=== PATIENT | female | born 1995 | race African-American/Black ===

== ENCOUNTER 2018-10-05 18:48 | Inpatient (IN) | payer MEDICARE, MEDICAID ==
[~2018-10-05] VITALS: Ht 177.8 cm; Wt 96.6 kg
[2018-10-05] MEDS ORDERED: DEPAKOTE ER500 MG ORAL (18:51)
[2018-10-05 19:19] VITALS: BP 130/88
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
[2018-10-05 21:08] LABS: APPEARANCE,URINE CLEAR; BILIRUBIN, URINE NEGATIVE (NEGATIVE); COLOR,URINE PALE YELLOW; GLUCOSE, URINE (UA) NEGATIVE (NEGATIVE); KETONES,URINE NEGATIVE (NEGATIVE); LEUKOCYTE ESTERASE ,URINE NEGATIVE (NEGATIVE); NITRITE,URINE NEGATIVE (NEGATIVE); PH,URINE 7 (4.5-8.0); PROTEIN,URINE NEGATIVE (NEGATIVE); UROBILINOGEN,URINE NORMAL MG/DL (0.0-1.0)
[2018-10-05 21:10] LABS: BASOPHILS % (AUTO) 1.2 % (0.0-2.0); EOSINOPHILS % (AUTO) 0.1 % (0.0-3.0); HEMATOCRIT 43.1 % (37.0-47.0); HEMOGLOBIN 13.8 G/DL (12.0-16.0); LYMPHOCYTES % (AUTO) 21.4 % (20.0-45.0); MEAN CORPUSCULAR VOLUME 81 FL (80-99); MONOCYTES % (AUTO) 7.6 % (1.0-10.0); NEUTROPHILS % (AUTO) 69.7 % (45.0-75.0); PLATELET COUNT 264 K/UL (150-450); RED BLOOD COUNT 5.33 M/UL (4.20-5.40); RED CELL DISTRIBUTION WIDTH 12.2 % (11.6-14.8); WHITE BLOOD COUNT 14.7 K/UL (4.8-10.8)
[2018-10-05 21:13] LABS: ANION GAP 12 mmol/L (5-15); BLOOD UREA NITROGEN 6 mg/dL (7-18); CALCIUM 9.4 MG/DL (8.5-10.1); CARBON DIOXIDE 25 MMOL/L (21-32); CHLORIDE 104 MMOL/L (98-107); CREATININE 0.9 MG/DL (0.55-1.30); SODIUM 141 MMOL/L (136-145)
[2018-10-05 21:28] LABS: ALANINE AMINOTRANSFERASE 25 U/L (12-78); ALBUMIN 3.8 G/DL (3.4-5.0); ALBUMIN/GLOBULIN RATIO 0.8 (1.0-2.7); ALKALINE PHOSPHATASE 132 U/L (46-116); ASPARTATE AMINO TRANSFERASE 29 U/L (15-37); BILIRUBIN,TOTAL 0.3 MG/DL (0.2-1.0)
[2018-10-05 22:28] VITALS: BP 104/61
--- NOTE | 2018-10-05 22:29 | NUR ---
ER Nurse Note: Pt stated she was feeling nauseated; MD notified for zofran. Head of bed elevated. Pt asleep. VSS. No signs of distress. Will continue to montior.
[2018-10-05] MEDS ORDERED: Morphine Sulfate 4mg/ml Inj (IV/IM USE ONLY) IVP PRN (22:30)
[2018-10-05] MEDS ORDERED: Miralax 17gm pkt ORAL PRN (22:30)
[2018-10-05] MEDS ORDERED: LORazepam Inj 2mg/ml 1ml IV PRN (22:30)
[2018-10-05] MEDS ORDERED: Albuterol/Ipratropium 3ml neb HHN PRN (22:30)
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
[2018-10-05] MEDS ORDERED: Cefepime HCl 1 GM in D5W 55 ML IVPB ONE (23:45)
[2018-10-06] VITALS (7 sets, daily range): BP systolic 107–136; BP diastolic 66–78
--- NOTE | 2018-10-06 | NUR ---
ER Nurse Note: Pt asleep, no signs of distress. O2 98% RA. IV patent, no signs of infiltration. All safety measures met; sitter at bedside. Will continue to montior.
--- NOTE | 2018-10-06 02:30 | NUR ---
ER Nurse Note: Report given to CASSIDY Blair in [place] for continuity of care. Pt was held for ultrasound. Pt a&ox4, VSS, no signs of distress. Pt does not complain of pain. Pt asleep, calm. All belongings taken with pt. Sitter with transport.
[2018-10-06] MEDS ORDERED: Vancomycin 1 GM in D5W 275 ML IVPB SCH (03:00)
--- NOTE | 2018-10-06 03:15 | NUR ---
NURSE NOTES: Patient in bed, awake, alert and verbally responsive. A0x4 to name, place, situation, time. at times patient laughs at no reason. Kept clean and comfortable. Provided safe environment. Skin is intact. No complaint of pain or discomfort at this time. Iv site is patent. call light is at bedside. Oriented patient to the room and hospital. will continue plan of care.
[2018-10-06 07:03] LABS: BASOPHILS % (AUTO) 0.5 % (0.0-2.0); EOSINOPHILS % (AUTO) 0.2 % (0.0-3.0); HEMATOCRIT 38.3 % (37.0-47.0); HEMOGLOBIN 12.7 G/DL (12.0-16.0); LYMPHOCYTES % (AUTO) 26.9 % (20.0-45.0); MEAN CORPUSCULAR VOLUME 79 FL (80-99); NEUTROPHILS % (AUTO) 63.5 % (45.0-75.0); PLATELET COUNT 242 K/UL (150-450); RED BLOOD COUNT 4.83 M/UL (4.20-5.40); RED CELL DISTRIBUTION WIDTH 12.5 % (11.6-14.8); WHITE BLOOD COUNT 12.5 K/UL (4.8-10.8)
[2018-10-06 07:14] LABS: ALBUMIN 3.1 G/DL (3.4-5.0); ANION GAP 10 mmol/L (5-15); BLOOD UREA NITROGEN 8 mg/dL (7-18); CALCIUM 8.3 MG/DL (8.5-10.1); CARBON DIOXIDE 27 MMOL/L (21-32); CHLORIDE 106 MMOL/L (98-107); CREATININE 0.8 MG/DL (0.55-1.30); PHOSPHORUS 3.9 MG/DL (2.5-4.9); POTASSIUM 3.3 MMOL/L (3.5-5.1); SODIUM 143 MMOL/L (136-145)
--- NOTE | 2018-10-06 07:32 | NUR ---
HAND-OFF: Report given to Garcia Montgomery.
--- NOTE | 2018-10-06 08:02 | NUR ---
NURSE NOTES: Pt in bed sleeping, in no acute distress. Iv to right wrist patent running fluids as ordered. Pt has sitter at bedside (hx of combative behavior.) Pt left in bed in low position, call light within reach, bed locked and alarm on.
[2018-10-06] MEDS ORDERED: Cefepime HCl 2 GM in D5W 110 ML IV SCH (09:00)
[2018-10-06] MEDS: Depakote ER 500mg tab ORAL SCH ×2 (09:32→20:19)
[2018-10-06] MEDS: Heparin 5000 units/ml inj SUBQ SCH ×2 (09:33→20:20)
--- NOTE | 2018-10-06 10:51 | Diagnostic Imaging Report ---
Indication: Shortness of breath Technique: One view of the chest Comparison: Findings: Lungs and pleural spaces are clear. Heart size is normal Impression: No acute process
--- NOTE | 2018-10-06 12:07 | NUR ---
NURSE NOTES: Notified Dr. Quezada of K 3.3, new orders received for kcl 40 celsa and for sitter (hx of combative behavior/hallucinations.) refer to orders in chart.
--- NOTE | 2018-10-06 12:19 | Consultation ---
History of Present Illness General Date patient seen: Oct 06, 2018 Chief Complaint: Behavioral Complaint Present Illness HPI 23-year-old female with hx of seizures and psych, [facility] with CC of agitation. Patient's was somnolent ion ER. Patient was noted to have increased cough. She also had low grade temperature and Leukocytosis and admitted for further work up. Currently Pt is awake and comfortable. Doesn't respond to any questions and has burst of laugh episodes. Allergies: Coded Allergies: ARIPIPRAZOLE (Unverified Allergy, Unknown, 10/05/18) PALIPERIDONE (Verified Allergy, Unknown, 10/05/18) Uncoded Allergies: ARPIPRAZOLE (Allergy, Unknown, 10/05/18) Medication History Scheduled Divalproex Sodium* (Depakote Er*), 500 MG ORAL EVERY 12 HOURS, (Reported) Patient History Healthcare decision maker Resuscitation status Advanced Directive on File No Past Medical/Surgical History Past Medical/Surgical History: (1) Seizures (2) Psychosis Review of Systems All Other Systems: negative except mentioned in HPI Physical Exam General Appearance: WD/WN Lines, tubes and drains: peripheral HEENT: normocephalic, atraumatic Neck: non-tender, supple Respiratory/Chest: chest wall non-tender, lungs clear Breasts: no masses Cardiovascular/Chest: normal peripheral pulses Abdomen: normal bowel sounds, non tender Extremities: normal range of motion Skin Exam: normal pigmentation Last 24 Hour Vital Signs Date Time Temp Pulse Resp B/P (MAP) Pulse Ox O2 Delivery O2 Flow Rate FiO2 10/06/18 11:50 98.5 89 20 107/69 (82) 100 10/06/18 09:00 Room Air 10/06/18 08:03 97.6 98 20 109/74 (86) 100 10/06/18 03:49 98.8 100 20 121/78 (92) 100 10/06/18 03:19 Room Air 10/06/18 02:30 99.8 86 18 107/66 98 Room Air 10/06/18 02:30 99.2 86 16 107/66 98 Room Air 10/05/18 22:28 99.8 91 20 104/61 98 Room Air 10/05/18 21:26 100.2 10/05/18 19:19 75 18 Room Air 10/05/18 19:19 100.2 86 18 130/88 98 Room Air 10/05/18 18:44 100.2 75 18 130/88 98 Room Air Intake and Output 10/05/18 10/06/18 18:59 06:59 Intake Total 480.0 ml Balance 480.0 ml Intake IV Total 480.0 ml # Voids 5 Laboratory Tests Test 10/05/18 20:30 10/06/18 04:45 White Blood Count 14.7 K/UL (4.8-10.8) H 12.5 K/UL (4.8-10.8) H Red Blood Count 5.33 M/UL (4.20-5.40) 4.83 M/UL (4.20-5.40) Hemoglobin 13.8 G/DL (12.0-16.0) 12.7 G/DL (12.0-16.0) Hematocrit 43.1 % (37.0-47.0) 38.3 % (37.0-47.0) Mean Corpuscular Volume 81 FL (80-99) 79 FL (80-99) L Mean Corpuscular Hemoglobin 25.9 PG (27.0-31.0) L 26.2 PG (27.0-31.0) L Mean Corpuscular Hemoglobin Concent 32.1 G/DL (32.0-36.0) 33.0 G/DL (32.0-36.0) Red Cell Distribution Width 12.2 % (11.6-14.8) 12.5 % (11.6-14.8) Platelet Count 264 K/UL (150-450) 242 K/UL (150-450) Mean Platelet Volume 5.9 FL (6.5-10.1) L 6.1 FL (6.5-10.1) L Neutrophils (%) (Auto) 69.7 % (45.0-75.0) 63.5 % (45.0-75.0) Lymphocytes (%) (Auto) 21.4 % (20.0-45.0) 26.9 % (20.0-45.0) Monocytes (%) (Auto) 7.6 % (1.0-10.0) 9.0 % (1.0-10.0) Eosinophils (%) (Auto) 0.1 % (0.0-3.0) 0.2 % (0.0-3.0) Basophils (%) (Auto) 1.2 % (0.0-2.0) 0.5 % (0.0-2.0) Urine Color Pale yellow Urine Appearance Clear Urine pH 7 (4.5-8.0) Urine Specific [place] 1.005 (1.005-1.035) Urine Protein Negative (NEGATIVE) Urine Glucose (UA) Negative (NEGATIVE) Urine Ketones Negative (NEGATIVE) Urine Blood Negative (NEGATIVE) Urine Nitrite Negative (NEGATIVE) Urine Bilirubin Negative (NEGATIVE) Urine Urobilinogen Normal MG/DL (0.0-1.0) Urine Leukocyte Esterase Negative (NEGATIVE) Urine RBC 0-2 /HPF (0 - 2) Urine WBC 0 /HPF (0 - 2) Urine Squamous Epithelial Cells Occasional /LPF Urine Bacteria None /HPF (NONE) Urine HCG, Qualitative Negative (NEGATIVE) Sodium Level 141 MMOL/L (136-145) 143 MMOL/L (136-145) Potassium Level 4.0 MMOL/L (3.5-5.1) 3.3 MMOL/L (3.5-5.1) L Chloride Level 104 MMOL/L (98-107) 106 MMOL/L (98-107) Carbon Dioxide Level 25 MMOL/L (21-32) 27 MMOL/L (21-32) Anion Gap 12 mmol/L (5-15) 10 mmol/L (5-15) Blood Urea Nitrogen 6 mg/dL (7-18) L 8 mg/dL (7-18) Creatinine 0.9 MG/DL (0.55-1.30) 0.8 MG/DL (0.55-1.30) Estimat Glomerular Filtration Rate > 60 mL/min (>60) > 60 mL/min (>60) Glucose Level 92 MG/DL (74-106) 90 MG/DL (74-106) Calcium Level 9.4 MG/DL (8.5-10.1) 8.3 MG/DL (8.5-10.1) L Total Bilirubin 0.3 MG/DL (0.2-1.0) Aspartate Amino Transf (AST/SGOT) 29 U/L (15-37) Alanine Aminotransferase (ALT/SGPT) 25 U/L (12-78) Alkaline Phosphatase 132 U/L (46-116) H Troponin I 0.011 ng/mL (0.000-0.056) Total Protein 8.3 G/DL (6.4-8.2) H Albumin 3.8 G/DL (3.4-5.0) 3.1 G/DL (3.4-5.0) L Globulin 4.5 g/dL Albumin/Globulin Ratio 0.8 (1.0-2.7) L Thyroid Stimulating Hormone (TSH) 1.702 uiU/mL (0.358-3.740) Phosphorus Level 3.9 MG/DL (2.5-4.9) Microbiology Date/Time Source Procedure Growth Status 10/05/18 20:30 Nasal Nares Influenza Types A,B Antigen (MINAL) - Final Complete 10/06/18 00:00 Rectum Received Height (Feet): 5 Height (Inches): 10.00 Weight (Pounds): 213 Medications Current Medications Medications (Trade) Dose Ordered Sig/[place] Route PRN Reason Start Time Stop Time Status Last Admin Dose Admin Acetaminophen (Tylenol) 650 mg Q4H PRN ORAL FEVER 10/05/18 22:30 11/04/18 22:29 Albuterol/ Ipratropium (Albuterol/ Ipratropium) 3 ml EVERY 4 HOURS PRN HHN Shortness of Breath 10/05/18 22:30 10/10/18 22:29 Cefepime HCl 2 gm/ Dextrose 110 ml @ 220 mls/hr EVERY 12 HOURS IV 10/06/18 09:00 10/13/18 08:59 10/06/18 09:32 Dextrose (Dextrose 50%) 50 ml STAT PRN IV Hypoglycemia 10/05/18 22:30 11/04/18 22:29 Divalproex Sodium (Depakote ER) 500 mg EVERY 12 HOURS ORAL 10/06/18 09:00 11/05/18 08:59 10/06/18 09:32 Heparin Sodium (Porcine) (Heparin 5000 units/ml) 5,000 units EVERY 12 HOURS SUBQ 10/06/18 09:00 11/05/18 08:59 10/06/18 09:33 Lorazepam (Ativan 2mg/ml 1ml) 2 mg EVERY 2 HOURS PRN IV For Anxiety 10/05/18 22:30 10/12/18 22:29 Morphine Sulfate (Morphine Sulfate) 4 mg EVERY 4 HOURS PRN IVP Severe Pain (Pain Scale 7-10) 10/05/18 22:30 10/12/18 22:29 Ondansetron HCl (Zofran) 4 mg Q6H PRN IVP Nausea & Vomiting 10/05/18 22:30 11/04/18 22:29 Polyethylene Glycol (Miralax) 17 gm DAILYPRN PRN ORAL Constipation 10/05/18 22:30 11/04/18 22:29 Potassium Chloride (K-Dur) 40 meq ONCE ORAL 10/06/18 12:15 10/06/18 13:00 Sodium Chloride 1,000 ml @ 50 mls/hr Q20H IV 10/05/18 22:26 11/04/18 22:25 10/06/18 03:07 Vancomycin HCl 1 gm/Dextrose 275 ml @ 183.3 mls/ hr Q24H IVPB 10/06/18 03:00 10/11/18 02:59 10/06/18 03:08 Assessment/Plan Problem List: (1) Sepsis ICD Codes: A41.9 - Sepsis, unspecified organism SNOMED: 71965486 (2) Leukocytosis ICD Codes: D72.829 - Elevated white blood cell count, unspecified SNOMED: 363549241, 760100891 (3) Psychosis ICD Codes: F29 - Unspecified psychosis not due to a substance or known physiological condition SNOMED: 97846071 (4) Seizures ICD Codes: R56.9 - Unspecified convulsions SNOMED: 69976030 Assessment/Plan perez culture iv abx check urine check electrolytes and wbc ID evaluation continue ptsy seizure medication. Dwight Winter MD Oct 06, 2018 12:19
--- NOTE | 2018-10-06 15:03 | NUR ---
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 TO ER CC HEARING VOICES SI; FEBRILE ILLNESS, LEUKOCYTOSIS T. 100.2 HR 79 RR 18 B/P 130/88 WBC 14.7 NA 132 CXR= NO ACUTE PROCESS IS: TYLENOL PO ADMITTED TO MED/SURG MED/SURG STATUS DCP RETURN TO [facility]
--- NOTE | 2018-10-06 15:18 | NUR ---
ST NOTE: BEDSIDE SWALLOW EVAL RECEIVED BEDSIDE SWALLOW EVAL ORDER CHART REVIEWED PRIOR THE EVALUATION PT IS A 23-YEAR-OLD FEMALE WHO WAS ADMITTED DUE TO LEUKOCYTOSIS PT HAS H/O COPD, ALCOHOL ABUSE, DRUG ABUSE, SEIZURE, HTN, PSYCH(SCHIZOPHRENIA AND ANXIETY). PER CXR: NO ACUTE PROCESS. PT RESIDES AT SNF. PER CHART, PT IS ON REGULAR WITH THIN LIQUIDS DIET. PER PT'S POLST: FULL CODE, FULL TREATMENT, OKAY FOR LONG-TERM ARTIFICIAL NUTRITION, INCLUDING FEEDING TUBES. CURRENT STATUS: PT SEEN AT BEDSIDE, SITTING UPRIGHT, WITH SITTER. ALERT, COOPERATIVE, FOLLOWS DIRECTIONS, EXPRESS THE WANT TO EAT/DRINK, PT HAS SOFT VOICE. DENIED ANY SWALLOW DIFFICULTY. GIVEN PO TRIALS: THIN(CUP-SELF), PUREE(TSP) AND CRACKERS X 2. GOOD LABIAL AND LINGUAL RANGE OF MOTION AND STRENGTH GOOD MASTICATION TIME, GOOD ORAL TRANSIT TIME AND GOOD LARYNGEAL ELEVATION, NO OVERT S/S OF ASPIRATION. OVERALL, PT'S SWALLOWING IS FUNCTIONAL. RECOMMENDATIONS: 1. SLOWLY INITIATE REGULAR WITH THIN LIQUIDS 2. GENERAL ASPIRATION PRECAUTIONS 3. MEAL OBSERVATIONS NO SKILLED ST SERVICE IS REQUIRED AT THIS TIME. D/W RNIVETH.
--- NOTE | 2018-10-06 15:51 | NUR ---
NURSE NOTES: Pt peeled skin off from left 5th digit, picture taken. Order set for wound care in place. Dressing placed on pt, cleansed with NS applied adaptic and 4x4 gauze. Educated pt on not picking skin, sitter at bedside. Will continue to monitor
--- NOTE | 2018-10-06 15:53 | NUR ---
Pt in bed laughing and talking to self. "Geraldine is in the room with me". The pt is hallucinating. Denies hearing voices/commands to hurt self. Pt a/o x 3, aware she is in the hospital but unable to verbalize purpose. Pt currently in no acute distress, laying in bed comfortably. Will continue monitoring, sitter at bedside for safety.
--- NOTE | 2018-10-06 16:00 | Consultation ---
History of Present Illness General Date patient seen: Oct 06, 2018 Chief Complaint: Behavioral Complaint Present Illness HPI 23 y/o F with hx of HTN, seizures disorder, schizophrenia, COPD, alcohol abuse in remission presents to ED on 10/05 with increased agitation, cough. Upon admission was noted patient had low grade fever and leukocytosis Allergies: Coded Allergies: ARIPIPRAZOLE (Unverified Allergy, Unknown, 10/05/18) PALIPERIDONE (Verified Allergy, Unknown, 10/05/18) Uncoded Allergies: ARPIPRAZOLE (Allergy, Unknown, 10/05/18) Medication History Scheduled Divalproex Sodium* (Depakote Er*), 500 MG ORAL EVERY 12 HOURS, (Reported) Patient History Healthcare decision maker Resuscitation status Advanced Directive on File No Patient History Narrative Pmhx: as above Shx: reviewed Fhx: non contributory Review of Systems All Other Systems: negative except mentioned in HPI Physical Exam Physical Exam Narrative General Appearance: WD/WN Lines, tubes and drains: peripheral HEENT: normocephalic, atraumatic Neck: non-tender, supple Respiratory/Chest: chest wall non-tender, lungs clear Breasts: no masses Cardiovascular/Chest: normal peripheral pulses Abdomen: normal bowel sounds, non tender Extremities: normal range of motion Skin Exam: normal pigmentation Last 24 Hour Vital Signs Date Time Temp Pulse Resp B/P (MAP) Pulse Ox O2 Delivery O2 Flow Rate FiO2 10/06/18 14:20 78 18 Room Air 21 10/06/18 11:50 98.5 89 20 107/69 (82) 100 10/06/18 09:00 Room Air 10/06/18 08:03 97.6 98 20 109/74 (86) 100 10/06/18 03:49 98.8 100 20 121/78 (92) 100 10/06/18 03:19 Room Air 10/06/18 02:30 99.8 86 18 107/66 98 Room Air 10/06/18 02:30 99.2 86 16 107/66 98 Room Air 10/05/18 22:28 99.8 91 20 104/61 98 Room Air 10/05/18 21:26 100.2 10/05/18 19:19 75 18 Room Air 10/05/18 19:19 100.2 86 18 130/88 98 Room Air 10/05/18 18:44 100.2 75 18 130/88 98 Room Air Intake and Output 10/05/18 10/06/18 19:00 07:00 Intake Total 480.0 ml Balance 480.0 ml Intake IV Total 480.0 ml # Voids 5 Laboratory Tests Test 10/05/18 20:30 10/06/18 04:45 White Blood Count 14.7 K/UL (4.8-10.8) H 12.5 K/UL (4.8-10.8) H Red Blood Count 5.33 M/UL (4.20-5.40) 4.83 M/UL (4.20-5.40) Hemoglobin 13.8 G/DL (12.0-16.0) 12.7 G/DL (12.0-16.0) Hematocrit 43.1 % (37.0-47.0) 38.3 % (37.0-47.0) Mean Corpuscular Volume 81 FL (80-99) 79 FL (80-99) L Mean Corpuscular Hemoglobin 25.9 PG (27.0-31.0) L 26.2 PG (27.0-31.0) L Mean Corpuscular Hemoglobin Concent 32.1 G/DL (32.0-36.0) 33.0 G/DL (32.0-36.0) Red Cell Distribution Width 12.2 % (11.6-14.8) 12.5 % (11.6-14.8) Platelet Count 264 K/UL (150-450) 242 K/UL (150-450) Mean Platelet Volume 5.9 FL (6.5-10.1) L 6.1 FL (6.5-10.1) L Neutrophils (%) (Auto) 69.7 % (45.0-75.0) 63.5 % (45.0-75.0) Lymphocytes (%) (Auto) 21.4 % (20.0-45.0) 26.9 % (20.0-45.0) Monocytes (%) (Auto) 7.6 % (1.0-10.0) 9.0 % (1.0-10.0) Eosinophils (%) (Auto) 0.1 % (0.0-3.0) 0.2 % (0.0-3.0) Basophils (%) (Auto) 1.2 % (0.0-2.0) 0.5 % (0.0-2.0) Urine Color Pale yellow Urine Appearance Clear Urine pH 7 (4.5-8.0) Urine Specific [place] 1.005 (1.005-1.035) Urine Protein Negative (NEGATIVE) Urine Glucose (UA) Negative (NEGATIVE) Urine Ketones Negative (NEGATIVE) Urine Blood Negative (NEGATIVE) Urine Nitrite Negative (NEGATIVE) Urine Bilirubin Negative (NEGATIVE) Urine Urobilinogen Normal MG/DL (0.0-1.0) Urine Leukocyte Esterase Negative (NEGATIVE) Urine RBC 0-2 /HPF (0 - 2) Urine WBC 0 /HPF (0 - 2) Urine Squamous Epithelial Cells Occasional /LPF Urine Bacteria None /HPF (NONE) Urine HCG, Qualitative Negative (NEGATIVE) Sodium Level 141 MMOL/L (136-145) 143 MMOL/L (136-145) Potassium Level 4.0 MMOL/L (3.5-5.1) 3.3 MMOL/L (3.5-5.1) L Chloride Level 104 MMOL/L (98-107) 106 MMOL/L (98-107) Carbon Dioxide Level 25 MMOL/L (21-32) 27 MMOL/L (21-32) Anion Gap 12 mmol/L (5-15) 10 mmol/L (5-15) Blood Urea Nitrogen 6 mg/dL (7-18) L 8 mg/dL (7-18) Creatinine 0.9 MG/DL (0.55-1.30) 0.8 MG/DL (0.55-1.30) Estimat Glomerular Filtration Rate > 60 mL/min (>60) > 60 mL/min (>60) Glucose Level 92 MG/DL (74-106) 90 MG/DL (74-106) Calcium Level 9.4 MG/DL (8.5-10.1) 8.3 MG/DL (8.5-10.1) L Total Bilirubin 0.3 MG/DL (0.2-1.0) Aspartate Amino Transf (AST/SGOT) 29 U/L (15-37) Alanine Aminotransferase (ALT/SGPT) 25 U/L (12-78) Alkaline Phosphatase 132 U/L (46-116) H Troponin I 0.011 ng/mL (0.000-0.056) Total Protein 8.3 G/DL (6.4-8.2) H Albumin 3.8 G/DL (3.4-5.0) 3.1 G/DL (3.4-5.0) L Globulin 4.5 g/dL Albumin/Globulin Ratio 0.8 (1.0-2.7) L Thyroid Stimulating Hormone (TSH) 1.702 uiU/mL (0.358-3.740) Phosphorus Level 3.9 MG/DL (2.5-4.9) Microbiology Date/Time Source Procedure Growth Status 10/05/18 20:30 Nasal Nares Influenza Types A,B Antigen (MINAL) - Final Complete 10/06/18 00:00 Rectum Received Height (Feet): 5 Height (Inches): 10.00 Weight (Pounds): 213 Medications Current Medications Medications (Trade) Dose Ordered Sig/[place] Route PRN Reason Start Time Stop Time Status Last Admin Dose Admin Acetaminophen (Tylenol) 650 mg Q4H PRN ORAL FEVER 10/05/18 22:30 11/04/18 22:29 Albuterol/ Ipratropium (Albuterol/ Ipratropium) 3 ml EVERY 4 HOURS PRN HHN Shortness of Breath 10/05/18 22:30 10/10/18 22:29 Cefepime HCl 2 gm/ Dextrose 110 ml @ 220 mls/hr EVERY 12 HOURS IV 10/06/18 09:00 10/13/18 08:59 10/06/18 09:32 Dextrose (Dextrose 50%) 50 ml STAT PRN IV Hypoglycemia 10/05/18 22:30 11/04/18 22:29 Divalproex Sodium (Depakote ER) 500 mg EVERY 12 HOURS ORAL 10/06/18 09:00 11/05/18 08:59 10/06/18 09:32 Heparin Sodium (Porcine) (Heparin 5000 units/ml) 5,000 units EVERY 12 HOURS SUBQ 10/06/18 09:00 11/05/18 08:59 10/06/18 09:33 Lorazepam (Ativan 2mg/ml 1ml) 2 mg EVERY 2 HOURS PRN IV For Anxiety 10/05/18 22:30 10/12/18 22:29 Morphine Sulfate (Morphine Sulfate) 4 mg EVERY 4 HOURS PRN IVP Severe Pain (Pain Scale 7-10) 10/05/18 22:30 10/12/18 22:29 Ondansetron HCl (Zofran) 4 mg Q6H PRN IVP Nausea & Vomiting 10/05/18 22:30 11/04/18 22:29 Polyethylene Glycol (Miralax) 17 gm DAILYPRN PRN ORAL Constipation 10/05/18 22:30 11/04/18 22:29 Sodium Chloride 1,000 ml @ 50 mls/hr Q20H IV 10/05/18 22:26 11/04/18 22:25 10/06/18 03:07 Assessment/Plan Assessment/Plan Abx: IV Vancomycin x1 10/05 Cefepime 10/05- Assessment: Low grade fever Leukocytosis, improving -source of infection unclear- NO SALCIDO, no confusion upon my examination. She refers few days of V/D but this was not reported on transfer. -u/a neg -CXR: No acute process -influenza sc neg Agitation HTN seizures disorder schizophrenia COPD alcohol abuse in remission Plan: -Switch empiric Cefepime #2 to Ceftriaxone and keep for now pending cultures -f/u cx -Monitor CBC/CMP, temperatures -Bcx x2 -HIV ab, amylase, lipase Thank you for this consultation. Will continue to follow along with you. Discussed with Jyoti Julio M.D. Oct 06, 2018 16:00
--- NOTE | 2018-10-06 18:25 | NUR ---
Sputum cx taken down to lab at 1800. Notified Dr. Baum of left 5th toe skin tear/wound site.
--- NOTE | 2018-10-06 19:26 | NUR ---
HAND-OFF: Report given to CASSIDY Trinidad. Pt left in stable condition with sitter at bedside. Pt bed in low position, fluids running as orders, skid socks on, call light within reach.
--- NOTE | 2018-10-06 19:59 | NUR ---
NURSE NOTES: Patient in bed, awake, alert. Sitter at bedside. Kept clean and comfortable. Bed in low position. No complaint of pain or discomfort noted. IV site noted, iv fluid is infusing as ordered. Skin is warm and dry to touch. Respiration is even and unlabored. Call light is at bedside. Will continue plan of care.
[2018-10-06] MEDS: cefTRIAXone 1 GM in D5W 55 ML IVPB SCH (22:22)
[2018-10-07 04:00] VITALS: BP 132/77
[2018-10-07 05:32] VITALS: BP 132/77
--- NOTE | 2018-10-07 07:03 | NUR ---
NURSE NOTES: Drug screen negative.
--- NOTE | 2018-10-07 07:07 | NUR ---
HAND-OFF: Report given to Courtney Barber Patient in stable condition.
[2018-10-07 07:24] LABS: AMYLASE 43 U/L (25-115)
[2018-10-07 07:25] LABS: ANION GAP 8 mmol/L (5-15); BLOOD UREA NITROGEN 7 mg/dL (7-18); CALCIUM 8.7 MG/DL (8.5-10.1); CARBON DIOXIDE 26 MMOL/L (21-32); CHLORIDE 106 MMOL/L (98-107); CREATININE 0.7 MG/DL (0.55-1.30); POTASSIUM 3.9 MMOL/L (3.5-5.1); SODIUM 140 MMOL/L (136-145)
[2018-10-07 07:30] LABS: BASOPHILS % (AUTO) 0.7 % (0.0-2.0); EOSINOPHILS % (AUTO) 0.2 % (0.0-3.0); HEMATOCRIT 40.3 % (37.0-47.0); HEMOGLOBIN 13.3 G/DL (12.0-16.0); LYMPHOCYTES % (AUTO) 33.1 % (20.0-45.0); MEAN CORPUSCULAR VOLUME 80 FL (80-99); MONOCYTES % (AUTO) 6.9 % (1.0-10.0); NEUTROPHILS % (AUTO) 59.1 % (45.0-75.0); PLATELET COUNT 237 K/UL (150-450); RED BLOOD COUNT 5.05 M/UL (4.20-5.40); RED CELL DISTRIBUTION WIDTH 12.6 % (11.6-14.8)
--- NOTE | 2018-10-07 07:46 | NUR ---
NURSE NOTES: Pt in bed a/o x 3 in no acute distress, sitter at bedside. Pt denies hearing voices at this time. Patent Left hand IV. Left 5th toe dressing in place. Pt denies pain, able to verbalize needs. Pt in bed in low position, call light within reach, skid socks on, sitter at bedside. Will continue to monitor.
[2018-10-07 08:00] VITALS: BP 128/76
--- NOTE | 2018-10-07 08:55 | Infectious Diseases Prog Note ---
Assessment/Plan Assessment/Plan Abx: IV Vancomycin x1 10/05 Cefepime 10/05- Assessment: Low grade fever Leukocytosis, improving -source of infection unclear- NO SALCIDO, no confusion upon my examination. She refers few days of V/D but this was not reported on transfer. -u/a neg -CXR: No acute process -influenza sc neg Agitation HTN seizures disorder schizophrenia COPD alcohol abuse in remission HIV Neg Plan: -Continue Ceftriaxone #2/5 for now pending cultures - 10/06/18 SP Cefepime #2 -f/u cx -Monitor CBC/CMP, temperatures -Bcx x2 Will continue to follow along with you. Subjective Allergies: Coded Allergies: ARIPIPRAZOLE (Unverified Allergy, Unknown, 10/05/18) PALIPERIDONE (Verified Allergy, Unknown, 10/05/18) Uncoded Allergies: ARPIPRAZOLE (Allergy, Unknown, 10/05/18) Subjective Afebrile Leukocytosis resolving No N/V feeling better Objective Vital Signs Last 24 Hour Vital Signs Date Time Temp Pulse Resp B/P (MAP) Pulse Ox O2 Delivery O2 Flow Rate FiO2 10/07/18 08:10 84 18 Room Air 21 10/07/18 08:00 98.5 101 21 128/76 (93) 96 10/07/18 04:00 98.0 84 20 132/77 (95) 99 10/06/18 23:47 98.4 88 20 120/78 (92) 99 10/06/18 21:00 Room Air 10/06/18 20:42 88 18 Room Air 21 10/06/18 19:13 98.2 99 20 136/78 (97) 99 10/06/18 15:57 98.0 83 20 108/72 (84) 99 10/06/18 14:20 78 18 Room Air 21 10/06/18 11:50 98.5 89 20 107/69 (82) 100 10/06/18 09:00 Room Air Height (Feet): 5 Height (Inches): 10.00 Weight (Pounds): 213 Objective General Appearance: NAD HEENT: normocephalic, atraumatic Respiratory/Chest: chest wall non-tender, lungs clear Cardiovascular/Chest: normal peripheral pulses, RRR Abdomen: normal bowel sounds, non tender n Microbiology Date/Time Source Procedure Growth Status 10/05/18 20:30 Nasal Nares Influenza Types A,B Antigen (MINAL) - Final Complete 10/06/18 00:00 Rectum Received Laboratory Tests Test 10/07/18 05:43 10/07/18 06:00 White Blood Count 11.0 K/UL (4.8-10.8) H Red Blood Count 5.05 M/UL (4.20-5.40) Hemoglobin 13.3 G/DL (12.0-16.0) Hematocrit 40.3 % (37.0-47.0) Mean Corpuscular Volume 80 FL (80-99) Mean Corpuscular Hemoglobin 26.3 PG (27.0-31.0) L Mean Corpuscular Hemoglobin Concent 33.0 G/DL (32.0-36.0) Red Cell Distribution Width 12.6 % (11.6-14.8) Platelet Count 237 K/UL (150-450) Mean Platelet Volume 6.2 FL (6.5-10.1) L Neutrophils (%) (Auto) 59.1 % (45.0-75.0) Lymphocytes (%) (Auto) 33.1 % (20.0-45.0) Monocytes (%) (Auto) 6.9 % (1.0-10.0) Eosinophils (%) (Auto) 0.2 % (0.0-3.0) Basophils (%) (Auto) 0.7 % (0.0-2.0) Sodium Level 140 MMOL/L (136-145) Potassium Level 3.9 MMOL/L (3.5-5.1) Chloride Level 106 MMOL/L (98-107) Carbon Dioxide Level 26 MMOL/L (21-32) Anion Gap 8 mmol/L (5-15) Blood Urea Nitrogen 7 mg/dL (7-18) Creatinine 0.7 MG/DL (0.55-1.30) Estimat Glomerular Filtration Rate > 60 mL/min (>60) Glucose Level 80 MG/DL (74-106) Calcium Level 8.7 MG/DL (8.5-10.1) Amylase Level 43 U/L (25-115) Lipase 85 U/L (73-393) HIV (1&2) Antibody Rapid Negative (NEGATIVE) Urine Opiates Screen Negative (NEGATIVE) Urine Barbiturates Screen Negative (NEGATIVE) Phencyclidine (PCP) Screen Negative (NEGATIVE) Urine Amphetamines Screen Negative (NEGATIVE) Urine Benzodiazepines Screen Negative (NEGATIVE) Urine Cocaine Screen Negative (NEGATIVE) Urine Marijuana (THC) Screen Negative (NEGATIVE) Current Medications Medications (Trade) Dose Ordered Sig/[place] Route PRN Reason Start Time Stop Time Status Last Admin Dose Admin Acetaminophen (Tylenol) 650 mg Q4H PRN ORAL FEVER 10/05/18 22:30 11/04/18 22:29 Albuterol/ Ipratropium (Albuterol/ Ipratropium) 3 ml EVERY 4 HOURS PRN HHN Shortness of Breath 10/05/18 22:30 10/10/18 22:29 Ceftriaxone Sodium 1 gm/ Dextrose 55 ml @ 110 mls/hr Q24H IVPB 10/06/18 21:00 10/13/18 20:59 10/06/18 22:22 Dextrose (Dextrose 50%) 50 ml STAT PRN IV Hypoglycemia 10/05/18 22:30 11/04/18 22:29 Divalproex Sodium (Depakote ER) 500 mg EVERY 12 HOURS ORAL 10/06/18 09:00 11/05/18 08:59 10/06/18 20:19 Heparin Sodium (Porcine) (Heparin 5000 units/ml) 5,000 units EVERY 12 HOURS SUBQ 10/06/18 09:00 11/05/18 08:59 10/06/18 20:20 Lorazepam (Ativan 2mg/ml 1ml) 2 mg EVERY 2 HOURS PRN IV For Anxiety 10/05/18 22:30 10/12/18 22:29 Morphine Sulfate (Morphine Sulfate) 4 mg EVERY 4 HOURS PRN IVP Severe Pain (Pain Scale 7-10) 10/05/18 22:30 10/12/18 22:29 Ondansetron HCl (Zofran) 4 mg Q6H PRN IVP Nausea & Vomiting 10/05/18 22:30 11/04/18 22:29 Polyethylene Glycol (Miralax) 17 gm DAILYPRN PRN ORAL Constipation 10/05/18 22:30 11/04/18 22:29 Sodium Chloride 1,000 ml @ 50 mls/hr Q20H IV 10/05/18 22:26 11/04/18 22:25 10/07/18 02:23 Minesh Wiley MD Oct 07, 2018 08:55
--- NOTE | 2018-10-07 09:03 | General Progress Note ---
Assessment/Plan Problem List: (1) Psychosis ICD Codes: F29 - Unspecified psychosis not due to a substance or known physiological condition SNOMED: 04747384 (2) Seizures ICD Codes: R56.9 - Unspecified convulsions SNOMED: 63404022 (3) Febrile illness ICD Codes: R50.9 - Fever, unspecified SNOMED: 964826793 (4) Sepsis ICD Codes: A41.9 - Sepsis, unspecified organism SNOMED: 48049039 (5) Leukocytosis ICD Codes: D72.829 - Elevated white blood cell count, unspecified SNOMED: 855175456, 768124444 Status: unchanged Assessment/Plan abx psyc tx cbc bmp am Subjective Constitutional: Reports: weakness Allergies: Coded Allergies: ARIPIPRAZOLE (Unverified Allergy, Unknown, 10/05/18) PALIPERIDONE (Verified Allergy, Unknown, 10/05/18) Uncoded Allergies: ARPIPRAZOLE (Allergy, Unknown, 10/05/18) All Systems: reviewed and negative except above Subjective calm in bed confused Objective Last 24 Hour Vital Signs Date Time Temp Pulse Resp B/P (MAP) Pulse Ox O2 Delivery O2 Flow Rate FiO2 10/07/18 08:10 84 18 Room Air 21 10/07/18 08:00 98.5 101 21 128/76 (93) 96 10/07/18 04:00 98.0 84 20 132/77 (95) 99 10/06/18 23:47 98.4 88 20 120/78 (92) 99 10/06/18 21:00 Room Air 10/06/18 20:42 88 18 Room Air 21 10/06/18 19:13 98.2 99 20 136/78 (97) 99 10/06/18 15:57 98.0 83 20 108/72 (84) 99 10/06/18 14:20 78 18 Room Air 21 10/06/18 11:50 98.5 89 20 107/69 (82) 100 Intake and Output 10/06/18 10/07/18 19:00 07:00 Intake Total 1550 ml 1605 ml Output Total 650 ml 600 ml Balance 900 ml 1005 ml Intake Oral 1000 ml 1100 ml IV Total 550 ml 505 ml Output Urine Total 650 ml 600 ml # Voids 5 3 # Bowel Movements 2 Laboratory Tests 10/07/18 05:43: White Blood Count 11.0H, Red Blood Count 5.05, Hemoglobin 13.3, Hematocrit 40.3 , Mean Corpuscular Volume 80, Mean Corpuscular Hemoglobin 26.3L, Mean Corpuscular Hemoglobin Concent 33.0, Red Cell Distribution Width 12.6, Platelet Count 237, Mean Platelet Volume 6.2L, Neutrophils (%) (Auto) 59.1, Lymphocytes ( %) (Auto) 33.1, Monocytes (%) (Auto) 6.9, Eosinophils (%) (Auto) 0.2, Basophils (%) (Auto) 0.7, Sodium Level 140, Potassium Level 3.9, Chloride Level 106, Carbon Dioxide Level 26, Anion Gap 8, Blood Urea Nitrogen 7, Creatinine 0.7, Estimat Glomerular Filtration Rate > 60, Glucose Level 80, Calcium Level 8.7, Amylase Level 43, Lipase 85, HIV (1&2) Antibody Rapid Negative 10/07/18 06:00: Urine Opiates Screen Negative, Urine Barbiturates Screen Negative, Phencyclidine (PCP) Screen Negative, Urine Amphetamines Screen Negative, Urine Benzodiazepines Screen Negative, Urine Cocaine Screen Negative, Urine Marijuana (THC) Screen Negative Height (Feet): 5 Height (Inches): 10.00 Weight (Pounds): 213 General Appearance: confused EENT: normal ENT inspection Neck: normal alignment Cardiovascular: normal peripheral pulses, normal rate, regular rhythm Respiratory/Chest: chest wall non-tender, lungs clear, normal breath sounds Abdomen: normal bowel sounds, non tender, soft Extremities: normal inspection Edema: no edema noted Arm (L), no edema noted Arm (R), no edema noted Leg (L), no edema noted Leg (R), no edema noted Pedal (L), no edema noted Pedal (R), no edema noted Generalized Neurologic: responsive, motor weakness Skin: normal pigmentation, warm/dry Tae Quezada DO Oct 07, 2018 09:03
[2018-10-07] MEDS: Heparin 5000 units/ml inj SUBQ SCH ×2 (09:05→21:08)
[2018-10-07] MEDS: Depakote ER 500mg tab ORAL SCH ×2 (09:06→21:07)
--- NOTE | 2018-10-07 09:47 | Pulmonology Progress Note ---
Assessment/Plan Problems: (1) Sepsis (2) Leukocytosis (3) Psychosis (4) Seizures Assessment/Plan iv abx check cultures f/u wbc symptomatic treatment dvt prophylaxis. Subjective ROS Limited/Unobtainable: No Constitutional: Reports: no symptoms HEENT: Repors: no symptoms Respiratory: Reports: no symptoms Allergies: Coded Allergies: ARIPIPRAZOLE (Unverified Allergy, Unknown, 10/05/18) PALIPERIDONE (Verified Allergy, Unknown, 10/05/18) Uncoded Allergies: ARPIPRAZOLE (Allergy, Unknown, 10/05/18) Objective Last 24 Hour Vital Signs Date Time Temp Pulse Resp B/P (MAP) Pulse Ox O2 Delivery O2 Flow Rate FiO2 10/07/18 08:10 84 18 Room Air 21 10/07/18 08:00 98.5 101 21 128/76 (93) 96 10/07/18 04:00 98.0 84 20 132/77 (95) 99 10/06/18 23:47 98.4 88 20 120/78 (92) 99 10/06/18 21:00 Room Air 10/06/18 20:42 88 18 Room Air 21 10/06/18 19:13 98.2 99 20 136/78 (97) 99 10/06/18 15:57 98.0 83 20 108/72 (84) 99 10/06/18 14:20 78 18 Room Air 21 10/06/18 11:50 98.5 89 20 107/69 (82) 100 Intake and Output 10/06/18 10/07/18 19:00 07:00 Intake Total 1550 ml 1605 ml Output Total 650 ml 600 ml Balance 900 ml 1005 ml Intake Oral 1000 ml 1100 ml IV Total 550 ml 505 ml Output Urine Total 650 ml 600 ml # Voids 5 3 # Bowel Movements 2 Objective General Appearance: WD/WN Lines, tubes and drains: peripheral HEENT: normocephalic, atraumatic Neck: non-tender, supple Respiratory/Chest: chest wall non-tender, lungs clear Breasts: no masses Cardiovascular/Chest: normal peripheral pulses Abdomen: normal bowel sounds, non tender Extremities: normal range of motion Skin Exam: normal pigmentation Microbiology Date/Time Source Procedure Growth Status 10/05/18 20:30 Nasal Nares Influenza Types A,B Antigen (MINAL) - Final Complete 10/06/18 00:00 Rectum Received Laboratory Tests 10/07/18 05:43: White Blood Count 11.0H, Red Blood Count 5.05, Hemoglobin 13.3, Hematocrit 40.3 , Mean Corpuscular Volume 80, Mean Corpuscular Hemoglobin 26.3L, Mean Corpuscular Hemoglobin Concent 33.0, Red Cell Distribution Width 12.6, Platelet Count 237, Mean Platelet Volume 6.2L, Neutrophils (%) (Auto) 59.1, Lymphocytes ( %) (Auto) 33.1, Monocytes (%) (Auto) 6.9, Eosinophils (%) (Auto) 0.2, Basophils (%) (Auto) 0.7, Sodium Level 140, Potassium Level 3.9, Chloride Level 106, Carbon Dioxide Level 26, Anion Gap 8, Blood Urea Nitrogen 7, Creatinine 0.7, Estimat Glomerular Filtration Rate > 60, Glucose Level 80, Calcium Level 8.7, Amylase Level 43, Lipase 85, HIV (1&2) Antibody Rapid Negative 10/07/18 06:00: Urine Opiates Screen Negative, Urine Barbiturates Screen Negative, Phencyclidine (PCP) Screen Negative, Urine Amphetamines Screen Negative, Urine Benzodiazepines Screen Negative, Urine Cocaine Screen Negative, Urine Marijuana (THC) Screen Negative Current Medications Medications (Trade) Dose Ordered Sig/[place] Route PRN Reason Start Time Stop Time Status Last Admin Dose Admin Acetaminophen (Tylenol) 650 mg Q4H PRN ORAL FEVER 10/05/18 22:30 11/04/18 22:29 Albuterol/ Ipratropium (Albuterol/ Ipratropium) 3 ml EVERY 4 HOURS PRN HHN Shortness of Breath 10/05/18 22:30 10/10/18 22:29 Ceftriaxone Sodium 1 gm/ Dextrose 55 ml @ 110 mls/hr Q24H IVPB 10/06/18 21:00 10/13/18 20:59 10/06/18 22:22 Dextrose (Dextrose 50%) 50 ml STAT PRN IV Hypoglycemia 10/05/18 22:30 11/04/18 22:29 Divalproex Sodium (Depakote ER) 500 mg EVERY 12 HOURS ORAL 10/06/18 09:00 11/05/18 08:59 10/07/18 09:06 Heparin Sodium (Porcine) (Heparin 5000 units/ml) 5,000 units EVERY 12 HOURS SUBQ 10/06/18 09:00 11/05/18 08:59 10/07/18 09:05 Lorazepam (Ativan 2mg/ml 1ml) 2 mg EVERY 2 HOURS PRN IV For Anxiety 10/05/18 22:30 10/12/18 22:29 Morphine Sulfate (Morphine Sulfate) 4 mg EVERY 4 HOURS PRN IVP Severe Pain (Pain Scale 7-10) 10/05/18 22:30 10/12/18 22:29 Ondansetron HCl (Zofran) 4 mg Q6H PRN IVP Nausea & Vomiting 10/05/18 22:30 11/04/18 22:29 Polyethylene Glycol (Miralax) 17 gm DAILYPRN PRN ORAL Constipation 10/05/18 22:30 11/04/18 22:29 Sodium Chloride 1,000 ml @ 50 mls/hr Q20H IV 10/05/18 22:26 11/04/18 22:25 10/07/18 02:23 Dwight Winter MD Oct 07, 2018 09:47
[2018-10-07 11:56] VITALS: BP 102/59
[2018-10-07 16:05] VITALS: BP 142/74
--- NOTE | 2018-10-07 17:07 | NUR ---
Pt remains in room, in no acute distress. Laughs occasionally and talks to self, hallucinates. Pt walked around unit with sitter. Pt denies pain/discomfort, good appetite. Lung sounds clear, abd BS normoactive x 4. Pt ambulates to bathroom, verbalized needs. Will continue to monitor, safety measures in place, sitter at bedside.
--- NOTE | 2018-10-07 19:00 | NUR ---
HAND-OFF: Report given to CASSIDY Duran. Pt left in bed in no acute distress, sitter at bedside. Skid socks on, bed locked and in low position, call light within reach.
--- NOTE | 2018-10-07 19:00 | NUR ---
NURSE NOTES:Patient received from Valentina Brantley. Patient A/A/AOX3 . Patient laying in bed . LH g#24 H/L patent and intact. sitter at bedside. Patient denies any pain at this time . no sob/ no n/v noted . patient left 5th toe dressing C/D/I. Patient laugh occasionally and talked to self . hallucinated . call light within reach. bed in low position at all times . will continue to monitor patient .
[2018-10-07 20:00] VITALS: BP 140/70
--- NOTE | 2018-10-07 20:00 | NUR ---
NURSE NOTES: patient ambulated to the bathroom and voided freely without difficulty to yellow urine output and assisted back to bed by sitter . left 5th toe dressing changed as MD ordered. call light within reach . bed in low position at all times . will continue to monitor patient , Addendum: 10/08/18 at 0103 by JC PANTOJA LVN safety maintained .
[2018-10-07] MEDS: cefTRIAXone 1 GM in D5W 55 ML IVPB SCH (21:15)
[2018-10-08 04:00] VITALS: BP 130/70
--- NOTE | 2018-10-08 04:15 | Consultation ---
DATE OF CONSULTATION: 10/07/2018 HISTORY OF PRESENT ILLNESS: This is a 23-year-old female patient, who came in with acute febrile illness and respiratory insufficiency, but she does have psychosis, rule out schizoaffective, bipolar type. She is on psychotropic medications, but is unclear what her current psychotropic medications are because according to the chart and she has a previous diagnosis of schizoaffective, bipolar type. ALLERGIES: She has no known drug allergies. PAST MEDICAL HISTORY: Please see internal medicine notes. MEDICATIONS: Psychotropic medications on admission Depakote 500 mg twice a day. SUBSTANCE ABUSE HISTORY: Polysubstance abuse. The patient will not give any details about that. As far as her pain is concerned, it is 0/10. She denies family psychiatric history. SOCIAL HISTORY: This patient is currently living in [facility]. Financially supported by [employer] and Medicare. PAST PSYCHIATRIC HISTORY: She has schizoaffective, bipolar type and has been in previous psychiatric admissions. The patient is a poor historian and will not give any details about that. STRENGTHS: She is motivated to get better and healthy. WEAKNESSES: She is impulsive and no support system. MENTAL STATUS EXAMINATION: This is a 23-year-old female. Appearance is disheveled. Attitude, irritable and agitated. Affect, guarded and restricted. Intellect poor. Mood depressed and anxious. Motor activity, psychomotor agitation. Attention is poor and orientation x2. Speech is low volume and slurred. Thought process is disorganized and logical. Thought content, auditory hallucinations and paranoid delusions. Insight and judgment is poor. DIAGNOSIS: Schizoaffective, bipolar type. Medical history is febrile illness, psychosocial stressors, financial function impairment is severe. PLAN: My plan is to start her on Zyprexa 5 mg twice a day to treat the psychosis and Depakote 500 twice a day to stabilize her mood. Provided her with 20 minutes of supportive psychotherapy and encouraged her to interact appropriately with staff and other patients. Chart reviewed and discussed with staff. Seen and assessed at the bedside. Twenty minutes of cognitive behavioral therapy provided to help her identify her automatic negative thoughts and help her to convert the negative thoughts to more positive thinking to reduce depression, anxiety, and mood lability and help her to have a more adaptive behavior pattern. Chart reviewed. Discussed with staff. Seen and assessed in her room. Ariela Cook M.D. DR: ADELINA JOB#: [id number] CC:
--- NOTE | 2018-10-08 05:15 | Consultation ---
DATE OF CONSULTATION: 10/06/2018 NOTE: POOR AUDIO PSYCHOTHERAPY CONSULTATION PROGRESS NOTE CONSULTING PHYSICIAN: Rosario Hagan PsyD. TREATING ATTENDING PHYSICIAN: Tae Quezada D.O. HISTORY OF PRESENT ILLNESS: The patient is a 23-year-old female patient. She is from [facility]. The patient brought into the hospital for leukocytosis. The patient has been extremely agitated, irritable, disorganized, and confused, and for these reasons, she was referred for psychotherapeutic services. The patient states she has a history of schizophrenia. The patient states that she has . The patient states that she however is not able to specify any particular details. She states that she does not know what to say. The patient also combative earlier and extremely agitated. She is on one-to-one continued at this time for her safety. The patient denies suicidal or homicidal thoughts of ideation. However, she does and disorganized. PAST MEDICAL HISTORY: Includes history of seizures, leukocytosis. ALLERGIES: The patient is allergic to aripiprazole and paliperidone. SUBSTANCE ABUSE HISTORY: The patient has a history of marijuana use. Denies history of alcohol use or smoking cigarettes. PSYCHIATRIC HISTORY: The patient states that she has a history of paranoid schizophrenia and treated with psychotropic medications in the past. SOCIAL HISTORY: The patient is a 23-year-old female patient from [facility]. Financially sustained through [facility]. MENTAL STATUS EXAMINATION: The patient is alert and oriented to person, place, and time. Mood is irritable. Affect is blunted. Thought process is disorganized. Thought content is delusional. Has poor attention and concentration. Poor insight and judgement and impulse control. DIAGNOSIS: Paranoid schizophrenia. PLAN: This clinician assessed the patient. Provided the patient with reality orientation, supportive psychotherapy, cognitive function. The patient is still confused and disoriented. Oriented to person, place, time, and situation. Provided the patient with supportive psychotherapy. This clinician has reviewed the patient's chart. positive communication, positive . Provided the patient with psychoeducation . Continue with behavioral management. . Rosario Hagan PsyD. DR: ITZEL JOB#: [id number] CC:
[2018-10-08 07:18] LABS: BASOPHILS % (AUTO) 1.1 % (0.0-2.0); EOSINOPHILS % (AUTO) 0.1 % (0.0-3.0); HEMATOCRIT 43.6 % (37.0-47.0); HEMOGLOBIN 14.1 G/DL (12.0-16.0); LYMPHOCYTES % (AUTO) 37.3 % (20.0-45.0); MEAN CORPUSCULAR VOLUME 80 FL (80-99); MONOCYTES % (AUTO) 7.3 % (1.0-10.0); NEUTROPHILS % (AUTO) 54.1 % (45.0-75.0); PLATELET COUNT 260 K/UL (150-450); RED BLOOD COUNT 5.43 M/UL (4.20-5.40); RED CELL DISTRIBUTION WIDTH 12.6 % (11.6-14.8)
--- NOTE | 2018-10-08 07:33 | NUR ---
HAND-OFF: Report given to FRANKY Brantley
[2018-10-08 07:34] LABS: ANION GAP 9 mmol/L (5-15); BLOOD UREA NITROGEN 10 mg/dL (7-18); CALCIUM 9.3 MG/DL (8.5-10.1); CARBON DIOXIDE 26 MMOL/L (21-32); CHLORIDE 106 MMOL/L (98-107); CREATININE 0.8 MG/DL (0.55-1.30); POTASSIUM 4.3 MMOL/L (3.5-5.1); SODIUM 141 MMOL/L (136-145)
[2018-10-08 08:19] VITALS: BP 115/63
--- NOTE | 2018-10-08 08:21 | NUR ---
NURSE NOTES: during shift change patient awake alert with flat affect seating on bed and responded minimal for RN question sitter at bedside will continue to monitor.
--- NOTE | 2018-10-08 08:38 | General Progress Note ---
Assessment/Plan Problem List: (1) Psychosis ICD Codes: F29 - Unspecified psychosis not due to a substance or known physiological condition SNOMED: 44210902 (2) Seizures ICD Codes: R56.9 - Unspecified convulsions SNOMED: 07557594 (3) Febrile illness ICD Codes: R50.9 - Fever, unspecified SNOMED: 252726023 (4) Sepsis ICD Codes: A41.9 - Sepsis, unspecified organism SNOMED: 43992310 (5) Leukocytosis ICD Codes: D72.829 - Elevated white blood cell count, unspecified SNOMED: 350838699, 172281793 Status: unchanged Assessment/Plan abx psyc tx cbc bmp am dc plan [facility] Subjective Constitutional: Reports: weakness Allergies: Coded Allergies: ARIPIPRAZOLE (Unverified Allergy, Unknown, 10/05/18) PALIPERIDONE (Verified Allergy, Unknown, 10/05/18) Uncoded Allergies: ARPIPRAZOLE (Allergy, Unknown, 10/05/18) All Systems: reviewed and negative except above Subjective calm in bed confused Objective Last 24 Hour Vital Signs Date Time Temp Pulse Resp B/P (MAP) Pulse Ox O2 Delivery O2 Flow Rate FiO2 10/08/18 08:19 98.4 94 18 115/63 (80) 95 10/08/18 04:00 98.1 90 18 130/70 (90) 95 10/07/18 21:33 Room Air 10/07/18 20:00 98.4 97 20 140/70 (93) 97 10/07/18 16:05 98.6 98 21 142/74 (96) 95 10/07/18 11:56 98.2 80 20 102/59 (73) 95 10/07/18 09:00 Room Air Intake and Output 10/07/18 10/08/18 19:00 07:00 Intake Total 1370 ml 895 ml Balance 1370 ml 895 ml Intake Oral 1320 ml 840 ml IV Total 50 ml 55 ml # Voids 10 4 # Bowel Movements 1 Laboratory Tests 10/08/18 06:42: White Blood Count 11.0H, Red Blood Count 5.43H, Hemoglobin 14.1, Hematocrit 43.6 , Mean Corpuscular Volume 80, Mean Corpuscular Hemoglobin 25.9L, Mean Corpuscular Hemoglobin Concent 32.3, Red Cell Distribution Width 12.6, Platelet Count 260, Mean Platelet Volume 6.2L, Neutrophils (%) (Auto) 54.1, Lymphocytes ( %) (Auto) 37.3, Monocytes (%) (Auto) 7.3, Eosinophils (%) (Auto) 0.1, Basophils (%) (Auto) 1.1, Sodium Level 141, Potassium Level 4.3, Chloride Level 106, Carbon Dioxide Level 26, Anion Gap 9, Blood Urea Nitrogen 10, Creatinine 0.8, Estimat Glomerular Filtration Rate > 60, Glucose Level 79, Calcium Level 9.3 Height (Feet): 5 Height (Inches): 10.00 Weight (Pounds): 213 General Appearance: lethargic EENT: normal ENT inspection Neck: normal alignment Cardiovascular: normal peripheral pulses, normal rate, regular rhythm Respiratory/Chest: chest wall non-tender, lungs clear, normal breath sounds Abdomen: normal bowel sounds, non tender, soft Extremities: normal inspection Edema: no edema noted Arm (L), no edema noted Arm (R), no edema noted Leg (L), no edema noted Leg (R), no edema noted Pedal (L), no edema noted Pedal (R), no edema noted Generalized Neurologic: responsive, motor weakness Skin: normal pigmentation, warm/dry Tae Quezada DO Oct 08, 2018 08:38
[2018-10-08] MEDS: Depakote ER 500mg tab ORAL SCH ×2 (09:35→21:35)
[2018-10-08] MEDS: Heparin 5000 units/ml inj SUBQ SCH ×2 (09:38→21:38)
[2018-10-08 12:00] VITALS: BP 122/68
--- NOTE | 2018-10-08 12:27 | Pulmonology Progress Note ---
Assessment/Plan Problems: (1) Sepsis (2) Leukocytosis (3) Psychosis (4) Seizures Assessment/Plan doing better iv abx check cultures, all negative so far. f/u wbc symptomatic treatment dvt prophylaxis. Subjective ROS Limited/Unobtainable: No Constitutional: Reports: no symptoms HEENT: Repors: no symptoms Respiratory: Reports: no symptoms Allergies: Coded Allergies: ARIPIPRAZOLE (Unverified Allergy, Unknown, 10/05/18) PALIPERIDONE (Verified Allergy, Unknown, 10/05/18) Uncoded Allergies: ARPIPRAZOLE (Allergy, Unknown, 10/05/18) Objective Last 24 Hour Vital Signs Date Time Temp Pulse Resp B/P (MAP) Pulse Ox O2 Delivery O2 Flow Rate FiO2 10/08/18 09:00 Room Air 10/08/18 08:19 98.4 94 18 115/63 (80) 95 10/08/18 04:00 98.1 90 18 130/70 (90) 95 10/07/18 21:33 Room Air 10/07/18 20:00 98.4 97 20 140/70 (93) 97 10/07/18 16:05 98.6 98 21 142/74 (96) 95 Intake and Output 10/07/18 10/08/18 19:00 07:00 Intake Total 1370 ml 895 ml Balance 1370 ml 895 ml Intake Oral 1320 ml 840 ml IV Total 50 ml 55 ml # Voids 10 4 # Bowel Movements 1 Objective General Appearance: WD/WN Lines, tubes and drains: peripheral HEENT: normocephalic, atraumatic Neck: non-tender, supple Respiratory/Chest: chest wall non-tender, lungs clear Breasts: no masses Cardiovascular/Chest: normal peripheral pulses Abdomen: normal bowel sounds, non tender Extremities: normal range of motion Skin Exam: normal pigmentation Microbiology Date/Time Source Procedure Growth Status 10/06/18 20:30 Blood Blood Culture - Preliminary NO GROWTH AFTER 24 HOURS Resulted 10/06/18 20:15 Blood Blood Culture - Preliminary NO GROWTH AFTER 24 HOURS Resulted 10/06/18 00:00 Nasal Nares MRSA Culture - Final NO METHICILLIN RESISTANT STAPH AUREUS... Complete 10/05/18 20:30 Nasal Nares Influenza Types A,B Antigen (MINAL) - Final Complete 10/06/18 00:00 Rectum - Final NO CARBAPENEM-RESISTANT ENTEROBACTERI... Complete 10/06/18 00:00 Rectum VRE Culture - Final NO VANCOMYCIN RESISTANT ENTEROCOCCUS ... Complete Laboratory Tests 10/08/18 06:42: White Blood Count 11.0H, Red Blood Count 5.43H, Hemoglobin 14.1, Hematocrit 43.6 , Mean Corpuscular Volume 80, Mean Corpuscular Hemoglobin 25.9L, Mean Corpuscular Hemoglobin Concent 32.3, Red Cell Distribution Width 12.6, Platelet Count 260, Mean Platelet Volume 6.2L, Neutrophils (%) (Auto) 54.1, Lymphocytes ( %) (Auto) 37.3, Monocytes (%) (Auto) 7.3, Eosinophils (%) (Auto) 0.1, Basophils (%) (Auto) 1.1, Sodium Level 141, Potassium Level 4.3, Chloride Level 106, Carbon Dioxide Level 26, Anion Gap 9, Blood Urea Nitrogen 10, Creatinine 0.8, Estimat Glomerular Filtration Rate > 60, Glucose Level 79, Calcium Level 9.3 Current Medications Medications (Trade) Dose Ordered Sig/Madison Route PRN Reason Start Time Stop Time Status Last Admin Dose Admin Acetaminophen (Tylenol) 650 mg Q4H PRN ORAL FEVER 10/05/18 22:30 11/04/18 22:29 Albuterol/ Ipratropium (Albuterol/ Ipratropium) 3 ml EVERY 4 HOURS PRN HHN Shortness of Breath 10/05/18 22:30 10/10/18 22:29 Ceftriaxone Sodium 1 gm/ Dextrose 55 ml @ 110 mls/hr Q24H IVPB 10/06/18 21:00 10/13/18 20:59 10/07/18 21:15 Dextrose (Dextrose 50%) 50 ml STAT PRN IV Hypoglycemia 10/05/18 22:30 11/04/18 22:29 Divalproex Sodium (Depakote ER) 500 mg EVERY 12 HOURS ORAL 10/06/18 09:00 11/05/18 08:59 10/08/18 09:35 Heparin Sodium (Porcine) (Heparin 5000 units/ml) 5,000 units EVERY 12 HOURS SUBQ 10/06/18 09:00 11/05/18 08:59 10/08/18 09:38 Lorazepam (Ativan 2mg/ml 1ml) 2 mg EVERY 2 HOURS PRN IV For Anxiety 10/05/18 22:30 10/12/18 22:29 Morphine Sulfate (Morphine Sulfate) 4 mg EVERY 4 HOURS PRN IVP Severe Pain (Pain Scale 7-10) 10/05/18 22:30 10/12/18 22:29 Olanzapine (ZyPREXA) 5 mg BID ORAL 10/07/18 18:00 11/06/18 17:59 10/08/18 09:35 Ondansetron HCl (Zofran) 4 mg Q6H PRN IVP Nausea & Vomiting 10/05/18 22:30 11/04/18 22:29 Polyethylene Glycol (Miralax) 17 gm DAILYPRN PRN ORAL Constipation 10/05/18 22:30 11/04/18 22:29 Dwight Winter MD Oct 08, 2018 12:27
[2018-10-08 16:11] VITALS: BP 118/72
--- NOTE | 2018-10-08 17:30 | Progress Note ---
DATE: 10/08/2018 SUBJECTIVE: The patient is a 23-year-old female patient with febrile illness. She continues to be depressed and confused. She continues to have some mood lability, confusion, and disorganized thought process. She does have febrile illness, confused, disorganized, and mood labile. She has no logical plan for her own self-care. Feelings of helplessness, hopelessness, low energy, poor appetite, and loss of interest in activity. MENTAL STATUS EXAMINATION: A 23-year-old female. Appearance is disheveled. Attitude, irritable and agitated. Affect, guarded and restricted. Intellect poor. Mood depressed and anxious. Motor activity, psychomotor agitation. Attention span is poor. Orientation x2. Speech is pressured. Thought processes are logical. Thought content, auditory hallucinations and paranoid delusions. Insight and judgment is poor. DIAGNOSIS: Schizoaffective, bipolar type. PLAN: To continue treatment with Zyprexa 5 mg twice a day as well as Depakote to help stabilize her mood. Provide her with 20 minutes of cognitive behavioral therapy to help identify automatic negative thoughts and help her convert those negative thoughts to more positive thoughts to reduce depression, anxiety, and suicidality. A 20 minutes of supportive psychotherapy was provided. Chart is reviewed. Discussed with staff. Ariela Cook M.D. DR: ELPIDIO JOB#: [id number] CC:
--- NOTE | 2018-10-08 19:35 | NUR ---
NURSE NOTES: Patient remained safe during my shift patient hallucinating and walk fast for hour or two. flat affect patient get agitated when staff try to talk to her or goes to her room able to eat her meal well.
--- NOTE | 2018-10-08 19:39 | NUR ---
HAND-OFF: Report given to Joey. FORDER OPERATOR patient agitated but stable condition.
--- NOTE | 2018-10-08 19:39 | NUR ---
NURSE NOTES:Patient received from Felicita Brantley . Patient walking around in the [address] with sitter. and back to bed. LH g#24 H/L patent and intact . between 4th and 5th toe dressing C/D/I. Call light within reach . bed in low position at all times . will continue to monitor .
[2018-10-08 20:00] VITALS: BP 123/72
[2018-10-08] MEDS: cefTRIAXone 1 GM in D5W 55 ML IVPB SCH (21:48)
[2018-10-09] VITALS: BP 112/70
[2018-10-09 04:00] VITALS: BP 119/74
[2018-10-09 07:15] LABS: BASOPHILS % (AUTO) 0.8 % (0.0-2.0); EOSINOPHILS % (AUTO) 0.3 % (0.0-3.0); HEMATOCRIT 39.6 % (37.0-47.0); HEMOGLOBIN 13.3 G/DL (12.0-16.0); LYMPHOCYTES % (AUTO) 43.2 % (20.0-45.0); MEAN CORPUSCULAR VOLUME 79 FL (80-99); MONOCYTES % (AUTO) 7.1 % (1.0-10.0); NEUTROPHILS % (AUTO) 48.7 % (45.0-75.0); PLATELET COUNT 230 K/UL (150-450); RED BLOOD COUNT 5.03 M/UL (4.20-5.40); RED CELL DISTRIBUTION WIDTH 12.2 % (11.6-14.8); WHITE BLOOD COUNT 11.6 K/UL (4.8-10.8)
[2018-10-09 07:26] LABS: ANION GAP 8 mmol/L (5-15); BLOOD UREA NITROGEN 8 mg/dL (7-18); CALCIUM 8.9 MG/DL (8.5-10.1); CARBON DIOXIDE 27 MMOL/L (21-32); CHLORIDE 107 MMOL/L (98-107); CREATININE 0.8 MG/DL (0.55-1.30); POTASSIUM 4.1 MMOL/L (3.5-5.1); SODIUM 141 MMOL/L (136-145)
--- NOTE | 2018-10-09 07:40 | NUR ---
HAND-OFF: Report given to Minesh Brantley Patient in stable condition.
--- NOTE | 2018-10-09 07:40 | NUR ---
NURSE NOTES: Received patient on bed, asleep. IV site intact and patent. Sitter at bedside. Bed in low and locked position. Rails padded. No signs of respiratory distress or pain. Room board updated, will continue to monitor.
[2018-10-09 08:00] VITALS: BP 111/60
--- NOTE | 2018-10-09 09:00 | Progress Note ---
DATE: 10/07/2018 NOTE: "POOR AUDIO QUALITY/INCOMPREHENSIBLE" TREATING ATTENDING PHYSICIAN: Tae Quezada D.O. HISTORY OF PRESENT ILLNESS: This patient is a 23-year-old female patient. The patient is confused , but she remains disorganized and has been agitated and . Initially, she was treated and evaluated in the hospital setting. The patient has history of schizophrenia and states that she does have auditory and visual hallucinations . She denies suicidal or homicidal thoughts of ideation. The patient states that she is feeling anxious and she is feeling . She at this time continues remains cooperative today according to nursing staff. This clinician assessed this patient. The patient is alert and oriented to person, place, and time. Mood is anxious. Affect is blunted. Thought process disorganized. Thought content is confused. She has poor attention and concentration. Poor insight, judgment, and impulse control. DIAGNOSIS: Paranoid schizophrenia. I assessed this patient. Provided the patient with reality orientation oriented to person, place, time, situation too. in the hospital setting. redirecting her delusional thought process positive coping skills practicing positive communication skills. this clinician has reviewed the patient's chart and discussed treatment with treatment team psychotherapy provided for the patient 20 minutes. medication compliance and positive coping skills . Rosario Hagan PsyD. DR: Kimberly JOB#: [id number] CC:
[2018-10-09] MEDS: Depakote ER 500mg tab ORAL SCH (09:09)
[2018-10-09] MEDS: Heparin 5000 units/ml inj SUBQ SCH (09:10)
--- NOTE | 2018-10-09 09:28 | Infectious Diseases Prog Note ---
Assessment/Plan Assessment/Plan Abx: IV Vancomycin x1 10/05 Cefepime 10/05- Assessment: Low grade fever - resolved Leukocytosis, improving -source of infection unclear- NO SALCIDO, no confusion upon my examination. She refers few days of V/D but this was not reported on transfer. -u/a neg -CXR: No acute process -influenza sc neg - Cx negative Agitation HTN seizures disorder schizophrenia COPD alcohol abuse in remission HIV Neg Plan: - D/C Abx as most likely viral illness - 10/08/18 SP Ceftriaxone #4 - 10/06/18 SP Cefepime #2 -Monitor CBC/CMP, temperatures Will continue to follow along with you. Subjective Allergies: Coded Allergies: ARIPIPRAZOLE (Unverified Allergy, Unknown, 10/05/18) PALIPERIDONE (Verified Allergy, Unknown, 10/05/18) Uncoded Allergies: ARPIPRAZOLE (Allergy, Unknown, 10/05/18) Subjective Afebrile Leukocytosis Mild No N/V Objective Vital Signs Last 24 Hour Vital Signs Date Time Temp Pulse Resp B/P (MAP) Pulse Ox O2 Delivery O2 Flow Rate FiO2 10/09/18 08:15 79 18 Room Air 28 10/09/18 08:00 98.6 85 18 111/60 (77) 99 10/09/18 04:00 97.9 92 20 119/74 (89) 99 10/09/18 00:00 98.2 95 20 112/70 (84) 98 10/08/18 21:00 Room Air 10/08/18 20:00 98.8 95 20 123/72 (89) 98 10/08/18 20:00 90 18 Room Air 21 10/08/18 16:11 98.2 92 20 118/72 (87) 100 10/08/18 12:00 98.2 96 18 122/68 (86) 98 Height (Feet): 5 Height (Inches): 10.00 Weight (Pounds): 213 Objective General Appearance: NAD HEENT: NCAT, MMM, EOMI Respiratory/Chest: CTAB, No W Cardiovascular/Chest: normal peripheral pulses, RRR Abdomen: normal bowel sounds, non tender n Microbiology Date/Time Source Procedure Growth Status 10/06/18 20:30 Blood Blood Culture - Preliminary NO GROWTH AFTER 48 HOURS Resulted 10/06/18 20:15 Blood Blood Culture - Preliminary NO GROWTH AFTER 48 HOURS Resulted Laboratory Tests Test 10/09/18 05:15 White Blood Count 11.6 K/UL (4.8-10.8) H Red Blood Count 5.03 M/UL (4.20-5.40) Hemoglobin 13.3 G/DL (12.0-16.0) Hematocrit 39.6 % (37.0-47.0) Mean Corpuscular Volume 79 FL (80-99) L Mean Corpuscular Hemoglobin 26.4 PG (27.0-31.0) L Mean Corpuscular Hemoglobin Concent 33.5 G/DL (32.0-36.0) Red Cell Distribution Width 12.2 % (11.6-14.8) Platelet Count 230 K/UL (150-450) Mean Platelet Volume 6.1 FL (6.5-10.1) L Neutrophils (%) (Auto) 48.7 % (45.0-75.0) Lymphocytes (%) (Auto) 43.2 % (20.0-45.0) Monocytes (%) (Auto) 7.1 % (1.0-10.0) Eosinophils (%) (Auto) 0.3 % (0.0-3.0) Basophils (%) (Auto) 0.8 % (0.0-2.0) Sodium Level 141 MMOL/L (136-145) Potassium Level 4.1 MMOL/L (3.5-5.1) Chloride Level 107 MMOL/L (98-107) Carbon Dioxide Level 27 MMOL/L (21-32) Anion Gap 8 mmol/L (5-15) Blood Urea Nitrogen 8 mg/dL (7-18) Creatinine 0.8 MG/DL (0.55-1.30) Estimat Glomerular Filtration Rate > 60 mL/min (>60) Glucose Level 77 MG/DL (74-106) Calcium Level 8.9 MG/DL (8.5-10.1) Current Medications Medications (Trade) Dose Ordered Sig/Madison Route PRN Reason Start Time Stop Time Status Last Admin Dose Admin Acetaminophen (Tylenol) 650 mg Q4H PRN ORAL FEVER 10/05/18 22:30 11/04/18 22:29 Albuterol/ Ipratropium (Albuterol/ Ipratropium) 3 ml EVERY 4 HOURS PRN HHN Shortness of Breath 10/05/18 22:30 10/10/18 22:29 Ceftriaxone Sodium 1 gm/ Dextrose 55 ml @ 110 mls/hr Q24H IVPB 10/06/18 21:00 10/13/18 20:59 10/08/18 21:48 Dextrose (Dextrose 50%) 50 ml STAT PRN IV Hypoglycemia 10/05/18 22:30 11/04/18 22:29 Divalproex Sodium (Depakote ER) 500 mg EVERY 12 HOURS ORAL 10/06/18 09:00 11/05/18 08:59 10/09/18 09:09 Heparin Sodium (Porcine) (Heparin 5000 units/ml) 5,000 units EVERY 12 HOURS SUBQ 10/06/18 09:00 11/05/18 08:59 10/09/18 09:10 Lorazepam (Ativan 2mg/ml 1ml) 2 mg EVERY 2 HOURS PRN IV For Anxiety 10/05/18 22:30 10/12/18 22:29 Morphine Sulfate (Morphine Sulfate) 4 mg EVERY 4 HOURS PRN IVP Severe Pain (Pain Scale 7-10) 10/05/18 22:30 10/12/18 22:29 Olanzapine (ZyPREXA) 5 mg BID ORAL 10/07/18 18:00 11/06/18 17:59 10/09/18 09:09 Ondansetron HCl (Zofran) 4 mg Q6H PRN IVP Nausea & Vomiting 10/05/18 22:30 11/04/18 22:29 Polyethylene Glycol (Miralax) 17 gm DAILYPRN PRN ORAL Constipation 10/05/18 22:30 11/04/18 22:29 Minesh Wiley MD Oct 09, 2018 09:28
--- NOTE | 2018-10-09 09:30 | Progress Note ---
DATE: 10/09/2018 SUBJECTIVE: The patient is a 23-year-old female patient with acute febrile illness. She continued to have some confusion, disorganized thought process, and mood lability worsened by stress of her medical illness. That is why, her attending physician has requested daily psychiatric consultation. MENTAL STATUS EXAMINATION: This is a 23-year-old female. Appearance disheveled. Attitude, irritable and agitated. Affect, guarded and restricted. Intellect poor. Mood, depressed and anxious. Motor activity, psychomotor agitation. Attention span is poor. Orientation x2. Speech is low volume and slurred. Thought process is disorganized and logical. Insight and judgment is poor. DIAGNOSIS: Schizoaffective, bipolar type. PLAN: Continue treatment with Zyprexa 5 mg twice a day in addition to her Depakote to stabilize her mood. Provide her with 20 minutes of cognitive behavioral therapy to help identify automatic negative thoughts and help her convert those negative thoughts to more positive thoughts to reduce depression, anxiety, and suicidality. Chart is reviewed. Discussed with staff. Ariela Cook M.D. DR: HOLGER JOB#: [id number] CC:
--- NOTE | 2018-10-09 10:21 | NUR ---
Social Work This SW received a consult for a transfer to [facility]. This Sw spoke with frederic Mansfield @ [facility] ([phone]) and faxed the referral to fax: [phone]. Pending evaluation at this time.
[2018-10-09 12:00] VITALS: BP 105/58
--- NOTE | 2018-10-09 13:01 | Pulmonology Progress Note ---
Assessment/Plan Problems: (1) Sepsis (2) Leukocytosis (3) Psychosis (4) Seizures Assessment/Plan no new comnplains all reviewed doing better iv abx check cultures, all negative so far. f/u wbc symptomatic treatment dvt prophylaxis. Subjective ROS Limited/Unobtainable: No Constitutional: Reports: no symptoms HEENT: Repors: no symptoms Respiratory: Reports: no symptoms Allergies: Coded Allergies: ARIPIPRAZOLE (Unverified Allergy, Unknown, 10/05/18) PALIPERIDONE (Verified Allergy, Unknown, 10/05/18) Uncoded Allergies: ARPIPRAZOLE (Allergy, Unknown, 10/05/18) Objective Last 24 Hour Vital Signs Date Time Temp Pulse Resp B/P (MAP) Pulse Ox O2 Delivery O2 Flow Rate FiO2 10/09/18 09:00 Room Air 10/09/18 08:15 79 18 Room Air 28 10/09/18 08:00 98.6 85 18 111/60 (77) 99 10/09/18 04:00 97.9 92 20 119/74 (89) 99 10/09/18 00:00 98.2 95 20 112/70 (84) 98 10/08/18 21:00 Room Air 10/08/18 20:00 98.8 95 20 123/72 (89) 98 10/08/18 20:00 90 18 Room Air 21 10/08/18 16:11 98.2 92 20 118/72 (87) 100 Intake and Output 10/08/18 10/09/18 19:00 07:00 Intake Total 2160 ml 1595 ml Output Total 2 ml Balance 2158 ml 1595 ml Intake Oral 2160 ml 1540 ml IV Total 55 ml Stool Total 2 ml # Voids 5 7 # Bowel Movements 1 Objective General Appearance: WD/WN Lines, tubes and drains: peripheral HEENT: normocephalic, atraumatic Neck: non-tender, supple Respiratory/Chest: chest wall non-tender, lungs clear Breasts: no masses Cardiovascular/Chest: normal peripheral pulses Abdomen: normal bowel sounds, non tender Extremities: normal range of motion Skin Exam: normal pigmentation Microbiology Date/Time Source Procedure Growth Status 10/06/18 20:30 Blood Blood Culture - Preliminary NO GROWTH AFTER 48 HOURS Resulted 10/06/18 20:15 Blood Blood Culture - Preliminary NO GROWTH AFTER 48 HOURS Resulted Laboratory Tests 10/09/18 05:15: White Blood Count 11.6H, Red Blood Count 5.03, Hemoglobin 13.3, Hematocrit 39.6 , Mean Corpuscular Volume 79L, Mean Corpuscular Hemoglobin 26.4L, Mean Corpuscular Hemoglobin Concent 33.5, Red Cell Distribution Width 12.2, Platelet Count 230, Mean Platelet Volume 6.1L, Neutrophils (%) (Auto) 48.7, Lymphocytes ( %) (Auto) 43.2, Monocytes (%) (Auto) 7.1, Eosinophils (%) (Auto) 0.3, Basophils (%) (Auto) 0.8, Sodium Level 141, Potassium Level 4.1, Chloride Level 107, Carbon Dioxide Level 27, Anion Gap 8, Blood Urea Nitrogen 8, Creatinine 0.8, Estimat Glomerular Filtration Rate > 60, Glucose Level 77, Calcium Level 8.9 Current Medications Medications (Trade) Dose Ordered Sig/Madison Route PRN Reason Start Time Stop Time Status Last Admin Dose Admin Acetaminophen (Tylenol) 650 mg Q4H PRN ORAL FEVER 10/05/18 22:30 11/04/18 22:29 Albuterol/ Ipratropium (Albuterol/ Ipratropium) 3 ml EVERY 4 HOURS PRN HHN Shortness of Breath 10/05/18 22:30 10/10/18 22:29 Dextrose (Dextrose 50%) 50 ml STAT PRN IV Hypoglycemia 10/05/18 22:30 11/04/18 22:29 Divalproex Sodium (Depakote ER) 500 mg EVERY 12 HOURS ORAL 10/06/18 09:00 11/05/18 08:59 10/09/18 09:09 Heparin Sodium (Porcine) (Heparin 5000 units/ml) 5,000 units EVERY 12 HOURS SUBQ 10/06/18 09:00 11/05/18 08:59 10/09/18 09:10 Lorazepam (Ativan 2mg/ml 1ml) 2 mg EVERY 2 HOURS PRN IV For Anxiety 10/05/18 22:30 10/12/18 22:29 Morphine Sulfate (Morphine Sulfate) 4 mg EVERY 4 HOURS PRN IVP Severe Pain (Pain Scale 7-10) 10/05/18 22:30 10/12/18 22:29 Olanzapine (ZyPREXA) 5 mg BID ORAL 10/07/18 18:00 11/06/18 17:59 10/09/18 09:09 Ondansetron HCl (Zofran) 4 mg Q6H PRN IVP Nausea & Vomiting 10/05/18 22:30 11/04/18 22:29 Polyethylene Glycol (Miralax) 17 gm DAILYPRN PRN ORAL Constipation 10/05/18 22:30 11/04/18 22:29 Dwight Winter MD Oct 09, 2018 13:01
--- NOTE | 2018-10-09 13:37 | NUR ---
Social Work Shyla, admissions at [facility] will send RN to evaluate patient today to evaluate.
--- NOTE | 2018-10-09 13:46 | General Progress Note ---
Assessment/Plan Problem List: (1) Psychosis ICD Codes: F29 - Unspecified psychosis not due to a substance or known physiological condition SNOMED: 48935715 (2) Seizures ICD Codes: R56.9 - Unspecified convulsions SNOMED: 57946308 (3) Febrile illness ICD Codes: R50.9 - Fever, unspecified SNOMED: 378635012 (4) Sepsis ICD Codes: A41.9 - Sepsis, unspecified organism SNOMED: 51904830 (5) Leukocytosis ICD Codes: D72.829 - Elevated white blood cell count, unspecified SNOMED: 942395699, 335157031 Status: stable, progressing Assessment/Plan abx psyc tx cbc bmp am dc plan [facility] Subjective Constitutional: Reports: weakness Allergies: Coded Allergies: ARIPIPRAZOLE (Unverified Allergy, Unknown, 10/05/18) PALIPERIDONE (Verified Allergy, Unknown, 10/05/18) Uncoded Allergies: ARPIPRAZOLE (Allergy, Unknown, 10/05/18) All Systems: reviewed and negative except above Subjective calm in bed confused Objective Last 24 Hour Vital Signs Date Time Temp Pulse Resp B/P (MAP) Pulse Ox O2 Delivery O2 Flow Rate FiO2 10/09/18 12:00 98.6 78 18 105/58 (74) 100 10/09/18 09:00 Room Air 10/09/18 08:15 79 18 Room Air 28 10/09/18 08:00 98.6 85 18 111/60 (77) 99 10/09/18 04:00 97.9 92 20 119/74 (89) 99 10/09/18 00:00 98.2 95 20 112/70 (84) 98 10/08/18 21:00 Room Air 10/08/18 20:00 98.8 95 20 123/72 (89) 98 10/08/18 20:00 90 18 Room Air 21 10/08/18 16:11 98.2 92 20 118/72 (87) 100 Intake and Output 10/08/18 10/09/18 19:00 07:00 Intake Total 2160 ml 1595 ml Output Total 2 ml Balance 2158 ml 1595 ml Intake Oral 2160 ml 1540 ml IV Total 55 ml Stool Total 2 ml # Voids 5 7 # Bowel Movements 1 Laboratory Tests 10/09/18 05:15: White Blood Count 11.6H, Red Blood Count 5.03, Hemoglobin 13.3, Hematocrit 39.6 , Mean Corpuscular Volume 79L, Mean Corpuscular Hemoglobin 26.4L, Mean Corpuscular Hemoglobin Concent 33.5, Red Cell Distribution Width 12.2, Platelet Count 230, Mean Platelet Volume 6.1L, Neutrophils (%) (Auto) 48.7, Lymphocytes ( %) (Auto) 43.2, Monocytes (%) (Auto) 7.1, Eosinophils (%) (Auto) 0.3, Basophils (%) (Auto) 0.8, Sodium Level 141, Potassium Level 4.1, Chloride Level 107, Carbon Dioxide Level 27, Anion Gap 8, Blood Urea Nitrogen 8, Creatinine 0.8, Estimat Glomerular Filtration Rate > 60, Glucose Level 77, Calcium Level 8.9 Height (Feet): 5 Height (Inches): 10.00 Weight (Pounds): 213 General Appearance: lethargic, confused EENT: normal ENT inspection Neck: normal alignment Cardiovascular: normal peripheral pulses, normal rate, regular rhythm Respiratory/Chest: chest wall non-tender, lungs clear, normal breath sounds Abdomen: normal bowel sounds, non tender, soft Extremities: normal inspection Edema: no edema noted Arm (L), no edema noted Arm (R), no edema noted Leg (L), no edema noted Leg (R), no edema noted Pedal (L), no edema noted Pedal (R), no edema noted Generalized Neurologic: motor weakness Skin: normal pigmentation, warm/dry Tae Quezada Oct 09, 2018 13:46
--- NOTE | 2018-10-09 14:13 | Diagnostic Imaging Report ---
APPROVED REPORT CPT Code: 97653 Present Symptoms Comments: Pain BILATERAL: Imaging reveals a patent deep venous system bilaterally. There is no evidence of thrombus within the femoral, popliteal or tibial segments. The greater saphenous veins are also within normal limits. Doppler indicates normal spontaneous flow within these segments.
--- NOTE | 2018-10-09 15:49 | NUR ---
Social Work Jenny PET team ([phone]) are currently in route to evaluate patient. If cannot accept, discharge plans are to return back to [facility] @ [place]: [phone].
[2018-10-09 16:00] VITALS: BP 118/61
--- NOTE | 2018-10-09 19:45 | NUR ---
HAND-OFF: Report given to CASSIDY Monroy.
[2018-10-09 19:49] VITALS: BP 110/68
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
== END 2018-10-09 21:14 | DRG 872 ==
LOC: EDBD 18:48 → EMR 19:21 → 3E 23:19 → EDBEDREQ 10-06 00:45
DX: A41.9 Sepsis, unspecified organism (principal); G40.909 Epilepsy, unspecified, not intractable, without status epilepticus; F29 Unspecified psychosis not due to a substance or known physiological condition; Z88.8 Allergy status to other drugs, medicaments and biological substances; F25.0 Schizoaffective disorder, bipolar type; B34.9 Viral infection, unspecified; J44.9 Chronic obstructive pulmonary disease, unspecified; I10 Essential (primary) hypertension; F10.21 Alcohol dependence, in remission; R45.1 Restlessness and agitation
CPT/HCPCS: 36415; 71045; 80048; 80053; 80069; 80307; 81001; 81025; 82150; 83690; 84443; 84484; 85025; 86703; 86710; 86850; 86900; 86901; 87040; 87070; 87081; 87205; 92610; 93970; 94664; 99285; J8499